=== PATIENT | male | born 1985 | race Caucasian/White ===

== ENCOUNTER 2017-05-30 19:52 | Emergency (ER) | payer SELFPAY ==
--- NOTE | 2017-05-30 20:39 | EDPHY ---
H & P Stated Complaint: pulled door open- hitting face with corner of door, lac above L eyebrow Time Seen by Provider: 05/30/17 20:28 HPI/ROS: CHIEF COMPLAINT: Left eyebrow laceration. HISTORY OF PRESENT ILLNESS: The patient is a 32-year-old male who presents with left eyebrow laceration secondary to opening a door on his face just prior to arrival. He did not lose consciousness. He denies dizziness, vision changes, headache, or other complaints. No fever, chills, chest pain, shortness of breath, palpitations, vomiting, diarrhea, urinary complaints, headache, lightheadedness. His tetanus is up to date. REVIEW OF SYSTEMS: Aside from elements discussed in the HPI, a comprehensive 10-point review of systems was reviewed and is negative. PAST MEDICAL HISTORY: Denies. SOCIAL HISTORY: Does not abuse alcohol or drugs. VITAL SIGNS: Reviewed by me GENERAL: Well-developed, well-nourished, resting comfortably in no respiratory distress. HEENT: 2cm partial thickness vertical laceration over left eyebrow. Eyes: No icterus, no injection. Mouth: moist mucous membranes. No erythema or lesions. Neck: supple with no adenopathy. EXTREMITIES: No trauma. No edema. Range of motion is normal throughout. NEURO: Alert and oriented, grossly nonfocal. SKIN: Warm and dry, no rash. PSYCHIATRIC: Normal mentation, no agitation. Portions of this note were transcribed by a medical cash poster. I personally performed a history, physical exam, medical decision making, and confirmed accuracy of information the transcribed note. Source: Patient Exam Limitations: No limitations - Personal History Current Tetanus Diphtheria and Acellular Pertussis (TDAP): Yes - Medical/Surgical History Hx Asthma: No Hx Chronic Respiratory Disease: No Hx Diabetes: No Hx Cardiac Disease: No Hx Renal Disease: No Hx Cirrhosis: No Hx Alcoholism: No Hx HIV/AIDS: No Hx Splenectomy or Spleen Trauma: No Other PMH: hypertension - Social History Smoking Status: Never smoked Constitutional: Initial Vital Signs Temperature (C) 37 C 05/30/17 20:04 Heart Rate 70 05/30/17 20:04 Respiratory Rate 16 05/30/17 20:04 Blood Pressure 174/116 H 05/30/17 20:04 O2 Sat (%) 98 05/30/17 20:04 O2 Delivery Mode Room Air Allergies/Adverse Reactions: No Known Allergies Allergy (Unverified 05/30/17 20:07) Home Medications: Medication Instructions Recorded NK [No Known Home Meds] 05/30/17 Medical Decision Making Procedures: Procedure: Laceration repair. Verbal consent was obtained from the patient. The 2cm linear laceration on the left eyebrow was anesthetized using Bupivacaine. The wound was cleaned with standard ED protocol, draped and explored to its base with a gloved finger. There were no deep structures involved.The wound was repaired in single layer technique. The wound repair was simple. The procedure was performed by myself, Dr. Driver. ED Course/Re-evaluation: 32-year-old male presents with a 2cm partial thickness laceration above his left eyebrow secondary to hitting his head on a door. He has no other symptoms and no other complaints and is otherwise atraumatic. I will suture the wound and discharge him. Departure - Departure Disposition: Home, Routine, Self-Care Clinical Impression: Facial laceration Qualifiers: Encounter type: initial encounter Qualified Code(s): S01.81XA - Laceration without foreign body of other part of head, initial encounter Condition: Good Instructions: Care For Your Stitches (ED), Facial Laceration (ED) Additional Instructions: Keep wound clean and dry. Clean suture line with a mixture of hydrogen peroxide and water. Apply a thin layer of antibiotic cream. Dress wound if desired. Suture removal in 6-7 days. Watch for signs of infection. No soaking wound in water. Showers are ok. No swimming until sutures are removed. Use Tylenol or ibuprofen as needed for headache or discomfort. Return to emergency department if any concerns regarding infection. Referrals: NONE *PRIMARY CARE P,. [Primary Care Provider] - As per Instructions Report Scribed for: Sarah Driver Report Scribed by: Bharathi Barrera Date of Report: 05/30/17 Time of Report: 20:37
[2017-05-30 22:34] VITALS: BP 160/106; PULSE 74; RESP 18; TEMP 98.1; O2SAT 95
== END 2017-05-30 22:30 | disposition home or self-care (01) ==
PROC: 08QPXZZ Repair Left Upper Eyelid, External Approach (ICD-10-PCS; principal; 2017-05-30)
DX: S01.81XA Laceration without foreign body of other part of head, initial encounter (principal); I10 Essential (primary) hypertension; W22.09XA Striking against other stationary object, initial encounter; Y99.8 Other external cause status; Y93.89 Activity, other specified